=== PATIENT | female | born 1985 | race Caucasian/White ===

== ENCOUNTER 2019-12-08 03:37 | Emergency (ER) | payer BC ==
[~2019-12-08] VITALS: Ht 162.6 cm; Wt 63.7 kg
[2019-12-08] MEDS ORDERED: NITROFURANTOIN (MACROBID) 100 MG CAP PO ONE (05:30)
[2019-12-08] MEDS ORDERED: MACR100C43 PO (05:35)
[2019-12-08 05:45] VITALS: BP 126/68
== END 2019-12-08 05:58 | disposition home or self-care (01) ==
LOC: M ED 03:37
DX: N39.0 Urinary tract infection, site not specified (principal)